=== PATIENT | male | born 1950 | race Caucasian/White ===

== ENCOUNTER 2023-07-10 15:31 | Emergency (ER) | payer MEDICARE, OTHER ==
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
[2023-07-10 17:02] VITALS: BP 154/82; O2SAT 98
== END 2023-07-10 16:53 | disposition home or self-care (01) ==
LOC: ED 15:31
DX: S16.1XXA Strain of muscle, fascia and tendon at neck level, initial encounter (principal); V48.5XXA Car driver injured in noncollision transport accident in traffic accident, initial encounter; Y93.89 Activity, other specified; Y92.410 Unspecified street and highway as the place of occurrence of the external cause
CPT/HCPCS: 99283